=== PATIENT | female | born 1970 | race Caucasian/White ===

== ENCOUNTER → 2017-10-16 17:29 | Outpatient (REF) | payer BC, SELFPAY ==
[2017-10-22 15:19] LABS: Neisseria gonorrhoeae, NAA Negative (Negative)
== END ==
LOC: LAB 17:29
PROVIDERS: Obstetrics & Gynecology; Visit Provider Nurse Practitioner Obstetrics & Gynecology
DX: Z72.51 High risk heterosexual behavior (principal)
CPT/HCPCS: 87491; 87591

== ENCOUNTER → 2018-08-30 14:25 | Outpatient (CLI) | payer BC, SELFPAY ==
[2018-08-30 17:38] LABS: Free Thyroxine Index 1.7 ug/dL (5.93-13.13); Triiodothryronine (T3) Uptake 34 % (31-39)
[2018-09-01 12:44] LABS: Estradiol 87.5 pg/mL (.); FSH 34.6 mIU/mL (.); LH 12.2 mIU/mL (.); Triiodothyronine (T3) Free 2.3 pg/mL (2.0-4.4)
== END ==
PROVIDERS: Visit Provider Nurse Practitioner Obstetrics & Gynecology
DX: N93.9 Abnormal uterine and vaginal bleeding, unspecified (principal); N95.1 Menopausal and female climacteric states
CPT/HCPCS: 36415; 82670; 83001; 83002; 84436; 84443; 84479; 84481

== ENCOUNTER → 2018-09-03 14:32 | Outpatient (CLI) | payer BC, SELFPAY ==
--- NOTE | 2018-09-03 14:33 | US_ITS ---
US transvaginal Ordering Physician: Darrin Pope MD Patient Age: 48 years: Female HISTORY: ITS.REASON: US T/V- Irregular Periods Prolonged bleeding 6 weeks uterine fibroid cervical polyp TECHNIQUE: Transvaginal in transabdominal pelvic ultrasound/cc COMPARISON :None FINDINGS UTERUS 9.3 cm length x 5.45 cm AP x 7.7 cm wide. Generous endometrial stripe measures up to nearly 1.1 cm . Vague uterine fibroid suggested at the right lateral aspect of fundus. This measures up to 3.8 cm length x 3.2 cm AP x 2.9 cm transverse. Probable cervical polyp: There is a 5 mm x 4.7 mm hyperechoic focus at the cervical canal which would be compatible with a small cervical polyp. Nabothian cysts are seen adjacent to apparent polyp, and located along the the Posterior aspect of the cervical canal.. Largest nabothian cyst just distal follow-up is 6 mm size. Another smaller one just proximal measuring less than 3 mm at. Right ovary 2.34 cm x 1.9 cm x 1.8 cm. Scattered small follicles none measuring over 6 mm size Enlarged left ovary Left ovary 5 cm x 3 cm x 3.6 cm. Dominant cyst at the left ovary measures up to 3.9 cm x 2.8 x 3.3 cm. Satisfactory, good color Doppler blood flow to both ovaries No free fluid pelvis IMPRESSION: 1. Uterus enlarged, with right lateral fundal Fibroid measures 3.8 cm length maximally Endometrium up to nearly 1.1 cm 2. Cervical polyp. 5 Mm size . Small Nabothian cyst 3. Prominent cyst left ovary measures 3.9 cm maximally . Appears to be smooth walled simple cysts but warrants follow-up 4. No free fluid in cul-de-sac
== END ==
PROVIDERS: PCP Emergency Medicine; Visit Provider Nurse Practitioner Obstetrics & Gynecology
DX: N92.6 Irregular menstruation, unspecified (principal)
CPT/HCPCS: 76830

== ENCOUNTER → 2018-11-03 13:42 | Outpatient (CLI) | payer BC, SELFPAY ==
[2018-11-03 14:03] LABS: Basophils % 0.6 % (0.1-2.0); Eosinophils # 0.3 K/mm3 (0.0-0.4); Eosinophils % 4.3 % (0.1-12.0); Hematocrit 37.2 % (37.0-47.0); Hemoglobin 11.9 g/dL (12.2-16.2); Lymphocytes # 2.1 K/mm3 (0.7-4.5); Lymphocytes % 31.3 % (10-50); Mean Corpuscular HGB Conc 31.9 g/dL (31.8-35.4); Mean Platelet Volume 7.2 fl (7.4-10.4); Monocytes # 0.4 K/mm3 (0.1-1.0); Monocytes % 5.6 % (1.7-9.3); Neutrophils # 3.9 K/mm3 (1.8-7.8); Neutrophils % 58.3 % (37.0-80.0); Platelet Count 292 K/mm3 (142-424); Red Blood Count 3.96 M/mm3 (4.20-5.40); Red Cell Distribution Width 12.9 % (11.5-17.5); White Blood Count 6.6 K/mm3 (4.8-10.8)
[2018-11-03 14:34] LABS: HCG Qualitative, Serum Negative (Negative)
[2018-11-03 14:56] LABS: Anion Gap 11.6 mEq/L (5-15); Blood Urea Nitrogen 12 mg/dL (7-18); Calcium 8.4 mg/dL (8.5-10.1); Carbon Dioxide 28 mmol/L (21.0-32.0); Chloride 106 mmol/L (98-107); Creatinine,Serum 0.62 mg/dL (0.55-1.02); Estimated Glomerular Filt Rate 102 ml/min (>60); GFR (African American) 124 ML/MIN (>60); Glucose 81 mg/dL (74-106); Potassium 3.6 mmoL/L (3.5-5.1); Sodium 142 mmol/L (136-145)
== END ==
PROVIDERS: Visit Provider Nurse Practitioner Obstetrics & Gynecology
DX: Z01.818 Encounter for other preprocedural examination (principal); N92.0 Excessive and frequent menstruation with regular cycle
CPT/HCPCS: 36415; 80048; 84703; 85025

== ENCOUNTER 2018-11-05 06:05 | Day surgery (SDC) | payer BC, SELFPAY ==
[2018-11-04 10:02] VITALS: BMI 21.9
[2018-11-05] VITALS (11 sets, daily range): BP systolic 141–173; BP diastolic 77–96; PULSE 56–73; RESP 18; TEMP 36.1–36.5; O2SAT 95–100
--- NOTE | 2018-11-05 07:04 | HMH.ANESCL ---
[facility] Anesthesia Checklist - Patient Identification Patient Identification: Arm Band, Verbal (Name & ) - Structural Data Admitted From: Home Planned Operative Procedure/s: Hysteroscopy, D&C, novasure ablation Consent for Planned Operative Procedure(s) Verified: Yes Verified Documents: Surgical Consent, History and Physical - NPO Status Verified Time NPO: 20:00 - Additional verifications Patient : No Anesthesia Reactions: No - Airway Assessment C-Spine Mobility Assessed: Yes TMJ Mobility Assessed: Yes Dentition: Good Dentition (upper braces) - Neurological Assessment Level of Consciousness: Awake, Alert, Appropriate, Follows Commands Hx Seizures: No Numbness or tingling in extremities: No - Anesthesia Plan Anesthesia Risk discussed: Yes Anesthesia Plan: Verified ASA Class: I Anesthesia Type: General [facility] History I have reviewed the patient's past medical history: Yes Medical History: Denies:: Anxiety, Asthma, Cancer, Depression, Diabetes Mellitus Type 1, Diabetes Mellitus Type 2, Heart Murmur, Hyperlipidemia, Hypertension, Internal Pacemaker, Lung Disease, Migraine, MRSA, Seizures *Have you ever received a pneumonia vaccine?: No *Have you received a flu vaccine this season?: No Other Surgeries: Yes: , Tubal Ligation, Other. No: Pacemaker Amputation: No Fractures: No - *Social History Educational Level: Attended High School Smoking Status: Never smoker Alcohol Intake: never Alcohol Intake Frequency:: holidays/special occasions only Substance Use Type: denies use *Occupational Status:: employed Housing: house *Travel in the last 8 weeks: None - Psychiatric History Expresses thoughts of harming self/others: None Suicide Plan Description: No Plan Pschychiatric History:: Denies:: Anxiety, Depression Family Hx:: Cancer, Diabetes, Coronary Artery Disease
--- NOTE | 2018-11-05 07:47 | HMH.OPNOTE ---
Date of procedure: 11/05/18 Pre-op Diagnosis:: Menorrhagia Post-op Diagnosis:: Menorrhagia Procedure performed:: Hysteroscopy, dilation and curettage, NovaSure ablation Surgeon:: Darrin Pope MD TENTER FRAME BACK TENDER:: Severino Packer Anesthesia: LMA Estimated blood loss (mL): 50 Clinical Note:: She is a 48-year-old lady who complains of very heavy periods. She has tried other forms of control to try and control her periods but despite this she continued to have menorrhagia. After having discussed the risks and benefits we offered her hysteroscopy, D&C and NovaSure ablation. Operative findings:: She had a normal-appearing endometrial cavity that was somewhat irregular. It was also hypervascular at the fundus. The rest of the endometrium appeared normal. Operative note:: She was taken to the operating room where LMA anesthesia was found be adequate. She was prepped and draped in the normal sterile fashion in the lithotomy position. A weighted speculum was placed in the vagina and the anterior lip of the cervix was grasped with a tenaculum. The cervix was then dilated to approximately 6 mm. I then inserted a hysteroscope into the uterine cavity and the findings were as previously dictated. I then performed a gentle curettage with a medium curette. I then sounded the uterus and determine the length of the uterus. The length the uterus was found to be 6 cm and the width was 4 cm. This was placed into the NovaSure device. I then inserted the NovaSure device and determine the width of the endometrial cavity. I then ran the device through its program. I further inspected the endometrial cavity and was found to be completely charred. I then injected 30 cc of 0.5% ropivacaine at the 3:00, 5:00, 7:00, and 9:00 positions of the cervix. She tolerated procedure well and was taken to the recovery room in excellent condition. All sponge and instrument counts were correct. The estimated blood loss was less than 50 cc. Condition: stable Disposition: PACU Specimens:: Endometrial curettings Complications:: None
--- NOTE | 2018-11-05 07:57 | P.PN_ITS ---
[facility] Anesthesia Record Part I Intake, IV Amount: 450 Estimated blood loss (mL): 50 Urine output (mL): 100 Blood Products used (#): none Blood Pressure: 151/90 SaO2: 95 Pulse Rate: 61 Respiratory Rate: 18 Temperature: 97.0 F Patient is:: Drowsy, Stable Stable to PACU at:: 07:54
--- NOTE | 2018-11-05 07:58 | P.PN_ITS ---
[facility] Anesthesia Record Part II Discharge Time: 08:24 Destination: Surgical Day Care (OP Surgery) PACU nurse assessment reviewed?: Yes Patient Condition:: Good Anesthesia Complications:: None Swallowing reflex intact?: Yes Cyanosis?: No
--- NOTE | 2018-11-05 09:59 | SUR.PHASEII ---
0830: No family waiting in OR waiting room. 0841: #20G IV removed from left hand, pt tolerated well. 0845: pt to bathroom, voided with no pain or distress 0848: pt has Peps[employer], tolerating well 0850: calling family, thought was , was pt's father, he was at home, had left after pt went to surgery, explained that we needed him to come, sign paperwork and pt is ready to be d/c 0915: pt's father at the bedside, d/c instructions given to pt and her father, along with Rx and instructions 0928: pt d/c home with her father
== END 2018-11-05 09:28 | disposition home or self-care (01) ==
LOC: OR 06:12
PROVIDERS: PCP Emergency Medicine; Visit Provider Nurse Practitioner Obstetrics & Gynecology
PROC: 0U5B8ZZ Destruction of Endometrium, Via Natural or Artificial Opening Endoscopic (ICD-10-PCS; CPT 58563; principal; 2018-11-05 07:30)
DX: N92.0 Excessive and frequent menstruation with regular cycle (principal)
CPT/HCPCS: 58563; 96374; J2405

== ENCOUNTER → 2018-12-07 15:03 | Outpatient (POV) | payer BC, SELFPAY | PROVIDERS: Visit Provider Dermatology | DX: Z00.00 Encounter for general adult medical examination without abnormal findings (principal) ==

== ENCOUNTER → 2020-04-26 15:03 | Outpatient (CLI) | payer BC, SELFPAY ==
[2020-04-26 15:04] LABS: Microscopic, Urine URINE MICROSCOPIC (MICROSCOPIC)
[2020-04-26 15:37] LABS: Appearance,Urine CLEAR (Clear); Bilirubin,Urine Negative (Negative); Blood, Urine Negative (Negative); Color,Urine YELLOW (Yellow); Glucose,Urine (UA) Negative (Negative); Ketones,Urine Negative (Negative); Leukocyte Esterase,Urine Negative (Negative); Nitrate,Urine Negative (Negative); Protein,Urine Negative (Negative); Specific Gravity, Urine >= 1.030 (1.005-1.030); Urobilinogen,Urine 0.2 EU/dl (0.2)
[2020-04-26 15:48] LABS: Calcium Oxalate Crystals,Urine 1+ /lpf; Squamous Epithelial Cell,Urine Occasional #/hpf (0-5)
[2020-04-26 15:49] LABS: Uric Acid Crystals,Urine 1+ /lpf
== END ==
PROVIDERS: Visit Provider Nurse Practitioner Obstetrics & Gynecology
DX: Z01.419 Encounter for gynecological examination (general) (routine) without abnormal findings (principal)
CPT/HCPCS: 81001

== ENCOUNTER → 2020-05-03 10:12 | Outpatient (CLI) | payer BC, SELFPAY ==
--- NOTE | 2020-05-03 10:15 | MM_ITS ---
PROCEDURE: MM DIG SCREENING MAMM BI W/CAD Digital Breast Tomosynthesis Included CLINICAL INDICATION: SCREENING There is a history of breast cancer patient's paternal grandmother. There has been previous bilateral breast reduction surgery. COMPARISON: MG DMSB DIG MAMM-SCREEN AVIVA from 04/05/2015 MG DMSB DIG MAMM-SCREEN AVIVA W/CAD from 06/19/2016 MG DMDB DIG MAMM-DX AVIVA W/CAD from 04/10/2017 TECHNIQUE: Standard CC and MLO images and 3D Tomosynthesis was obtained. R2 CAD reviewed. FINDINGS: There is a markedly and diffusely dense parenchymal pattern. Ady images are most helpful with this type of dense breast parenchyma and no definite suspicious or new lesion is seen in either breast. There are scattered microcalcifications in each breast. IMPRESSION: Markedly dense and heterogenic parenchymal pattern with no definite suspicious lesions seen. Strongly recommend monthly breast self-examination BI-RAD Category: FOLLOW-UP: 1YR 1 Year Follow-up (A letter has been sent to the patient regarding results of the study.) Dictated by: Dr. Bernard Sequeira MD 05/04/2020 16:54 Dr. Bernard Sequeira MD in OV 05/04/2020 16:54
== END ==
PROVIDERS: PCP Physician Assistant; Visit Provider Nurse Practitioner Obstetrics & Gynecology
DX: Z12.31 Encounter for screening mammogram for malignant neoplasm of breast (principal)
CPT/HCPCS: 77063; 77067

== ENCOUNTER 2020-08-25 13:03 | Emergency (ER) | payer BC, SELFPAY ==
[2020-08-25 13:16] VITALS: BP 134/72; PULSE 94; RESP 14; TEMP 36.8; O2SAT 98; BMI 23.6
--- NOTE | 2020-08-25 13:23 | HMH.EDUTC ---
[facility] [place] Disposition Clinical Impression: Allergic rhinitis Qualifiers: Allergic rhinitis trigger: other Allergic rhinitis seasonality: seasonal Qualified Code(s): J30.89 - Other allergic rhinitis Disposition: Home, Self-Care Condition on Discharge: Good Instructions: DI for Allergic Rhinitis Additional Instructions: follow up with pcp if no improvement return Referrals: Janeen Horan PA [Primary Care Provider] - Time of Disposition: 13:26 Medical Decision Making - Zhao Inquiry Pt receiving controlled substance: No Vital Signs: 08/25/20 13:16 Temperature 98.3 F Temperature Source Oral Pulse Rate [Right Brachial] 94 H Respiratory Rate 14 Blood Pressure [Right Arm] 134/72 Blood Pressure Mean [Right Arm] 92 Blood Pressure Source [Right Arm] Automatic Cuff Blood Pressure Position [Right Arm] Sitting 02 Sat by Pulse Oximetry 98 Oxygen Delivery Method Room Air [facility] HPI - General Chief complaint: Urgent Treatment Center Stated complaint: strep test Time Seen by Provider: 08/25/20 13:23 Mode of Arrival: Ambulatory Source of Information: Patient Limitations: No Limitations Description of Symptoms (Recalled from Triage Doc. by RN): check for strep - bad taste in mouth x 1 week HEENT Symptoms (Recalled from RN notes): Yes Resp Symptoms (Recalled from RN notes): No Skin Symptoms (Recalled from RN notes): No MS Symptoms (Recalled from RN notes): No Functional Status (Recalled from RN notes): n/a - History of Present Illness Provider Complaint: 50 yr old female presnets for strep test. pt denies sick contacts or sore throat states only a bad taste in mouth - Related Data Previous Rx's Medication Instructions Recorded phentermine 37.5 mg tablet 37.5 mg PO DAILY #30 tab 08/20/20 Allergies Allergy/AdvReac Type Severity Reaction Status Date / Time No Known Allergies Allergy Verified 08/25/20 13:20 - Worker's Comp Is this a Worker's Comp case?: No [facility] History - Hepatitis A Screen Drug use history?: No High risk sexual behaviors?: No History of sexually transmitted infection?: No Currently employed?: No Childcare worker?: No Do you have indoor plumbing?: No Do you have electricity?: Yes Attestation statement:: This patient has been screened for Hepatitis A risk factors. I have reviewed the patient's past medical history: Yes Medical History: Reports:: Internal Pacemaker Denies:: Anxiety, Asthma, Cancer, Depression, Diabetes Mellitus Type 1, Diabetes Mellitus Type 2, Heart Murmur, Hyperlipidemia, Hypertension, Lung Disease, Migraine, MRSA, Seizures Other Medical History: Denies: Blood Transfusion Reaction Other Surgeries: Yes: , Pacemaker, Tubal Ligation, Other Amputation: No Fractures: No Comment: Breast Reduction 12/2016 - Social History Smoking Status: Never smoker Alcohol Intake: never Alcohol Intake Frequency:: holidays/special occasions only Substance Use Type: denies use Occupational Status: employed Housing: house Household Members: family - Psychiatric History Pschychiatric History:: Denies:: Anxiety, Depression Family Hx:: Cancer, Diabetes, Coronary Artery Disease ROS Obtained: Yes Systems reviewed as appropriate & no additional complaints - Constitutional Constitutional: Reports system reviewed and no additional complaints, except as docu, Denies chills, Denies fever(s) - Eyes Eyes: Reports system reviewed and no additional complaints, except as docu, Denies blurry vision - ENT Ears, Nose, Mouth, and Throat: Reports system reviewed and no additional complaints, except as docu, Reports as per HPI, Denies sore throat - Cardiovascular Cardiovascular: Reports system reviewed and no additional complaints, except as docu, Denies chest pain at rest - Respiratory Respiratory: Reports system reviewed and no additional complaints, except as docu, Denies chest congestion - Gastrointestinal Gastrointestingal: Reports: system reviewed and no addition
[2020-08-25 13:30] VITALS: BP 134/72; PULSE 94; RESP 14; TEMP 36.8; O2SAT 98
[2020-08-25 19:34] LABS: UTC Strep Screen (Rapid) Negative (Negative)
== END 2020-08-25 13:32 | disposition home or self-care (01) ==
PROVIDERS: Emergency Provider Nurse Practitioner Family; PCP Physician Assistant
DX: J30.89 Other allergic rhinitis (principal)
CPT/HCPCS: 87880; 99202; G0463

== ENCOUNTER 2021-01-26 15:00 | Emergency (ER) | payer BC, SELFPAY ==
[2021-01-26 15:09] VITALS: BP 141/73; PULSE 94; RESP 18; TEMP 37.1; O2SAT 97; BMI 24.3
[2021-01-26 15:16] VITALS: BP 141/73; PULSE 94; RESP 17; TEMP 37.1
--- NOTE | 2021-01-26 16:00 | HMH.EDUTC ---
[facility] [place] Clinical Impression: Viral syndrome, Exposure to COVID-19 virus Pharyngitis Qualifiers: Pharyngitis/tonsillitis etiology: unspecified etiology Qualified Code(s): J02.9 - Acute pharyngitis, unspecified Disposition: Home, Self-Care Condition on Discharge: Good Instructions: DI for Viral Syndrome, DI for COVID-19 (Suspected or Confirmed ), Preventing the Spread of Coronavirus Discharge Instructions Additional Instructions: Drink plenty of fluids. Take tylenol for pain or fever. Return if you begin to have difficulty breathing. Follow up with your regular doctor. GO TO THE ER FOR ANY WORSENING SYMPTOMS Quarantine until you know the results of your covid-19 test. If it is positive, the health department should call you and give you further instructions about your length of Quarantine and other things. Notify your school or workplace of your results and follow their instructions regarding return to work/school. Prescriptions: Benzonatate [Tessalon Perle 100mg Cap] 100 mg PO TIDP PRN #30 cap PRN Reason: Cough Transmission Status: Received by [id number] Ondansetron [Zofran 4mg ODT] 4 mg PO DAILYP PRN #12 tab PRN Reason: Nausea Transmission Status: Received by [id number] Referrals: Param Donis MD [Primary Care Provider] - Forms: Work/School Release Time of Disposition: 16:09 Medical Decision Making - Medical Records Medical records reviewed: No: I reviewed the patient's medical records. - Zhao Inquiry Pt receiving controlled substance: No Vital Signs: 01/26/21 15:09 01/26/21 15:16 Temperature 98.8 F 98.8 F Temperature Source Oral Pulse Rate 94 H Pulse Rate [Left] 94 H Respiratory Rate 18 17 Blood Pressure 141/73 H Blood Pressure [Right Arm] 141/73 H Blood Pressure Mean [Right Arm] 95 02 Sat by Pulse Oximetry 97 Orders (Tests/Meds): ORDERS Category Date Time Status Covid-19 Nasal PCR ([facility]) Routine Lab 01/26/21 13:13 [place] [facility] [place] - General Stated complaint: covid test/symptoms Time Seen by Provider: 01/26/21 16:01 Mode of Arrival: Ambulatory Source of Information: Patient Limitations: No Limitations Description of Symptoms (Recalled from Triage Doc. by RN): PT C/O TAN, SORE THROAT AND RUNNY NOSE. PT WAS EXPOSE 01/19. HEENT Symptoms (Recalled from RN notes): Yes (TAN, SORE THROAT AND RUNNY NOSE) Resp Symptoms (Recalled from RN notes): No Skin Symptoms (Recalled from RN notes): No MS Symptoms (Recalled from RN notes): No Functional Status (Recalled from RN notes): NA - History of Present Illness Provider Complaint: She states that she has felt bad for the past 3 days. She has had a dry cough, sinus congestion and nausea. - Related Data Home Medications Medication Instructions Recorded Confirmed metronidazole 500 mg tablet 500 mg PO tab 10/23/20 10/23/20 Previous Rx's Medication Instructions Recorded fluconazole 150 mg tablet 150 mg PO .QOD 6 Days #3 tab 10/16/20 phentermine 37.5 mg tablet 37.5 mg PO DAILY #30 tab 11/20/20 Benzonatate [Tessalon Perle 100mg 100 mg PO TIDP PRN #30 cap 01/26/21 Cap] Ondansetron [Zofran 4mg ODT] 4 mg PO DAILYP PRN #12 tab 01/26/21 Allergies Allergy/AdvReac Type Severity Reaction Status Date / Time No Known Allergies Allergy Verified 10/23/20 13:47 - Worker's Comp Is this a Worker's Comp case?: No [facility] History - Hepatitis A Screen Drug use history?: No High risk sexual behaviors?: No History of sexually transmitted infection?: No Currently employed?: No Childcare worker?: No Do you have indoor plumbing?: Yes Do you have electricity?: Yes Attestation statement:: This patient has been screened for Hepatitis A risk factors. I have reviewed the patient's past medical history: Yes Medical History: Reports:: Internal Pacemaker Denies:: Anxiety, Asthma, Cancer, Depression, Diabetes Mellitus Type 1, Diabetes Mellitus Type 2, Heart Murmur, Hyperl
--- NOTE | 2021-01-27 14:37 | PC.NURSE ---
relayed positive covid result
== END 2021-01-26 16:37 | disposition home or self-care (01) ==
PROVIDERS: Emergency Provider Nurse Practitioner Family; PCP Emergency Medicine
DX: U07.1 COVID-19 (principal); B34.9 Viral infection, unspecified; Z95.0 Presence of cardiac pacemaker
CPT/HCPCS: 99202; C9803; G0463; U0003; U0005

== ENCOUNTER → 2021-07-04 07:53 | Outpatient (CLI) | payer BC, SELFPAY ==
--- NOTE | 2021-07-04 07:53 | MM_ITS ---
PROCEDURE INFORMATION: Exam: MG Bilateral Screening 3D Mammography Exam date and time: 07/04/2021 7:53 AM Age: 51 years old Clinical indication: Screening mammogram. TECHNIQUE: Imaging protocol: Bilateral Screening tomosynthesis and 2D mammography including computer-aided detection (CAD) when performed. COMPARISON: 1. MG MM DIG SCREENING MAMM BI W/CAD 05/03/2020 10:16 AM 2. MG DMDB DIG MAMM-DX AVIVA W/CAD 04/10/2017 1:09 PM 3. MG DMSB DIG MAMM-SCREEN AVIVA W/CAD 06/19/2016 9:58 AM 4. MG DMSB DIG MAMM-SCREEN AVIVA 04/05/2015 4:15 PM FINDINGS: MAMMOGRAPHY: Breast composition: The breast tissue is extremely dense, limiting the sensitivity of mammography. Mass: None. Architectural distortion: No new or suspicious architectural distortion. Calcifications: No new or suspicious calcifications are present Asymmetric density: No new or suspicious asymmetric density is present Skin thickening: None. Axillary adenopathy: None. IMPRESSION: No mammographic evidence of malignancy. Recommend annual screening mammography unless otherwise clinically indicated. ASSESSMENT: BI-RADS category 1: Negative
== END ==
PROVIDERS: PCP Emergency Medicine; Visit Provider Nurse Practitioner Obstetrics & Gynecology
DX: Z12.31 Encounter for screening mammogram for malignant neoplasm of breast (principal)
CPT/HCPCS: 77063; 77067

== ENCOUNTER 2021-08-03 13:57 | Emergency (ER) | payer BC, SELFPAY ==
[2021-08-03 14:20] VITALS: BP 130/76; PULSE 74; RESP 19; TEMP 36.8; O2SAT 98; BMI 25.7
[2021-08-03 14:41] LABS: UTC Influenza A Antigen Negative (Negative)
[2021-08-03 14:42] LABS: UTC Influenza B Antigen Negative (Negative)
--- NOTE | 2021-08-03 14:48 | HMH.EDUTC ---
[facility] [place] Clinical Impression: Viral syndrome Disposition: Home, Self-Care Condition on Discharge: Good Instructions: Nausea and Vomiting-Adult, Ondansetron, DI for COVID-19 (Suspected or Confirmed ) Additional Instructions: Drink extra fluids with and between meals. If you have difficulty drinking, try very small amounts of water or suck on ice chips. ? Avoid fruit juices, as these do not replace minerals and can actually increase diarrhea. ? Children and adults can use sports drinks to replenish electrolytes. Younger children and infants should use products formulated for children, like oral rehydration solutions. ? Eat food in small amounts and let your stomach recover. ? Get lots of rest. You may feel tired or weak. ? No greasy or fried foods for the next 24-48 hours BRAT diet Bananas Rice Apples and [place] ? Make sure to drink plenty of liquids ? Return if needed ? Straight to ER if any life threatening symptoms ? Zofran as prescribed ? Follow up with family doctor in the next 48-72 hours if no improvement or any worsening of symptoms Prescriptions: Ondansetron [Zofran 4mg ODT] 4 mg PO TIDP PRN #9 tab PRN Reason: Vomiting Transmission Status: [facility] to [facility] Referrals: Janeen Horan PA [Primary Care Provider] - As needed Time of Disposition: 15:01 Medical Decision Making - Zhao Inquiry Pt receiving controlled substance: No Zhao was queried for this patient: No Vital Signs: 08/03/21 14:20 08/03/21 15:06 Temperature 98.3 F 98.3 F Temperature Source Oral Pulse Rate 74 Pulse Rate [Right Brachial] 74 Respiratory Rate 19 19 Blood Pressure 130/76 Blood Pressure [Right Arm] 130/76 Blood Pressure Mean [Right Arm] 94 Blood Pressure Source [Right Arm] Automatic Cuff Blood Pressure Position [Right Arm] Sitting 02 Sat by Pulse Oximetry 98 Oxygen Delivery Method Room Air - Lab Data Lab results reviewed: Yes: I reviewed the patient's lab results. Lab Results 08/03/21 14:29: Influenza Type A Ag Negative, Influenza Type B Ag Negative Orders (Tests/Meds): ED MEDICATIONS Discontinued Medications Generic Name Dose Route Start Last Admin Trade Name Freq PRN Reason Stop Dose Admin Ondansetron HCl 4 mg 08/03/21 14:56 08/03/21 15:04 Ondansetron 4mg Odt SL 08/03/21 14:57 4 mg ONCE ONE Administration ORDERS Category Date Time Status Covid-19 Nasal PCR ([facility]) Routine Lab 08/03/21 14:29 Received [facility] [place] - General Stated complaint: covid test, vomiting Time Seen by Provider: 08/03/21 14:48 Mode of Arrival: Ambulatory Source of Information: Patient Limitations: No Limitations Description of Symptoms (Recalled from Triage Doc. by RN): PATIENT C/O NAUSEA, VOMITING SINCE LAST NIGHT HEENT Symptoms (Recalled from RN notes): No Resp Symptoms (Recalled from RN notes): No Skin Symptoms (Recalled from RN notes): No MS Symptoms (Recalled from RN notes): No Functional Status (Recalled from RN notes): WNL - History of Present Illness Provider Complaint: Patient states that she has been having N/V since last night States that she has been around someone recenlty that had the flu and not sure if she has been around someone with the stomach virus or not but today she was still having nausea so she came in to get checked and tested for COVID - Related Data Home Medications Medication Instructions Recorded Confirmed metronidazole 500 mg tablet 500 mg PO tab 10/23/20 10/23/20 Previous Rx's Medication Instructions Recorded fluconazole 150 mg tablet 150 mg PO .QOD 6 Days #3 tab 10/16/20 Benzonatate [Tessalon Perle 100mg 100 mg PO TIDP PRN #30 cap 01/26/21 Cap] Ondansetron [Zofran 4mg ODT] 4 mg PO DAILYP PRN #12 tab 01/26/21 phentermine 37.5 mg tablet 37.5 mg PO DAILY #30 tab 07/10/21 Ondansetron [Zofran 4mg ODT] 4 mg PO TIDP PRN #9 tab 08/03/21 Allergies Allergy/AdvReac Type Severity Reaction Status Date / Time No Known A
[2021-08-03 15:06] VITALS: BP 130/76; PULSE 74; RESP 19; TEMP 36.8; O2SAT 98
== END 2021-08-03 15:18 | disposition home or self-care (01) ==
PROVIDERS: Emergency Provider Nurse Practitioner; PCP Physician Assistant
DX: B34.9 Viral infection, unspecified (principal)
CPT/HCPCS: 87804; 99212; C9803; G0463; U0003; U0005

== ENCOUNTER 2022-01-13 15:16 | Emergency (ER) | payer BC, SELFPAY ==
[2022-01-13 18:10] VITALS: BP 140/76; PULSE 67; RESP 16; TEMP 36.7; O2SAT 99; BMI 25.8
--- NOTE | 2022-01-13 18:21 | EXP.UTC ---
Discharge Plan Disposition Patient Disposition: Home, Self-Care Condition: Good Prescriptions Prescriptions: New methylprednisolone [Medrol (José Miguel)] 4 mg tablets,dose pack 4 mg PO DAILY Qty: 21 0RF cefdinir 300 mg capsule 300 mg PO BID Qty: 20 0RF Activity Restrictions/Add. Instructions Additional Instructions/Restrictions: *Monitor Temp, Over the counter Motrin or Tylenol as directed/as needed Tylenol every 4 hours and Motrin every 6 hours (as long as your family doctor has told you that you can take it) for fever or pain. and straight to ER if unable to lower temp less than 101.0 after medication given *Warm salt water gargles may help to soothe the throat *Throat Lozenges? *Warm fluids like tea with honey may help to soothe the throat? *Sleep elevated *Humidifier/Vaporizer *Flonase 2 sprays in each nostril daily but be aware that it may take 2-3 days before you notice improvement *Bromfed may cause drowsiness. Know how it effects you (your child) before driving, caring for small child, or sending your child to school. Not other antihistamines/allergy medications while taking bromfed Your throat swab was sent for culture. Those results are typically sent to your primary care. Be sure to follow up in 2-3 days with your family doctor/primary care physician if no improvement so they can review those result and treat if necessary. If you don?t have a primary care doctor, I recommend you get one but in the mean time, you will have to return to a walk in clinic Follow up IMMEDIATELY for new or worsening symptoms or no Noticeable improvement over the next 48-72 hours. 911 for difficulty breathing or swallowing Clinical Impressions Clinical Impression: Strep throat Stand Alone Forms Stand Alone Forms: Work/School Release Instructions Patient Instructions: Sore Throat Discharge ED Provider: [place] [facility] General Stated complaint: sore throat Mode of Arrival: Ambulatory Source of Information: Patient Limitations: No Limitations Time Seen by Provider: 01/13/22 18:10 Description of Symptoms (Recalled from Triage Doc. by RN): PATIENT C/O SORE THROAT AND EAR PAIN X 3 DAYS HEENT Symptoms (Recalled from RN notes): Yes Resp Symptoms (Recalled from RN notes): No Skin Symptoms (Recalled from RN notes): No MS Symptoms (Recalled from RN notes): No Functional Status (Recalled from RN notes): WNL History of Present Illness Provider Complaint: Patient states that she has been having sore throat and bilateral ear pain for the last 3 days States that she feels like she has some drainage back there causing her throat to feel raw and irritated Related Data Previous Rx's Medication Instructions Recorded cefdinir 300 mg capsule 300 mg PO BID #20 caps 01/13/22 methylprednisolone 4 mg tablets in 4 mg PO DAILY #21 tabs 01/13/22 a dose pack (Medrol (José Miguel)) Allergies Allergy/AdvReac Type Severity Reaction Status Date / Time No Known Allergies Allergy Verified 11/08/21 14:59 Worker's Comp Is this a Worker's Comp case?: No PFSH PFSH Social History Smoking Status: Never smoker alcohol intake: never substance use type: denies use current occupational status: other Travel in the last 8 weeks: None household members: family housing: house ROS Obtained: Yes All systems reviewed & no additional complaints except as documented and Yes Systems reviewed as appropriate & no additional complaints except as documented Constitutional Constitutional: Reports system reviewed and no additional complaints, except as documented and Reports as per HPI ENT Ears, Nose, Mouth, and Throat: Reports system reviewed and no additional complaints, except as documented, Reports otalgia and Reports sore throat Cardiovascular Cardiovascular: Reports system reviewed and no additional complaints, except as documented and Reports as per HPI Respiratory Respiratory: Reports system reviewed and no
[2022-01-13 18:31] LABS: UTC Strep Screen (Rapid) Positive (Negative)
[2022-01-13 18:35] VITALS: BP 140/76; PULSE 67; RESP 16; TEMP 36.7; O2SAT 99
== END 2022-01-13 18:37 | disposition home or self-care (01) ==
PROVIDERS: Emergency Provider Nurse Practitioner; PCP Emergency Medicine
DX: J02.0 Streptococcal pharyngitis (principal)
CPT/HCPCS: 87880; 99212; G0463

== ENCOUNTER → 2022-07-01 13:20 | Outpatient (CLI) | payer BC, SELFPAY ==
--- NOTE | 2022-07-01 13:30 | ECG_ITS ---
APPROVED REPORT Exam: Resting ECG HR:74 bpm ECG Measurements Heart Rate 74 AXES WY 163 P 78 QRSd 117 QRS 61 QT 399 T 69 QTc 427 Conclusion SINUS RHYTHM INCOMPLETE RIGHT BUNDLE BRANCH BLOCK [90+ ms QRS DURATION, TERMINAL R IN V1/V2, 40+ ms S IN I/aVL/V4/V5/V6] BORDERLINE ECG UNCONFIRMED REPORT Electronically signed by : Severino Cornell MD 07/01/2022 21:15:20
--- NOTE | 2022-07-01 13:42 | XR_ITS ---
FINAL REPORT CLINICAL HISTORY: COUGH FINDINGS: PA and lateral views of the chest are obtained. There is no prior exam for comparison. The cardiac and mediastinal silhouettes are within normal limits. The lungs are clear. There is no pleural effusion, pneumothorax, or acute osseous abnormality. IMPRESSION: No radiographic evidence of acute cardiac or pulmonary disease. Reviewed, Interpreted and Dictated by Melinda Longroia MD Transcribed by Aleksandra Stovall Authenticated and [facility]
[2022-07-01 14:23] LABS: Basophils # 0.1 K/mm3 (0-0.2); Basophils % 1.1 % (0.1-2.0); Eosinophils # 0.4 K/mm3 (0.0-0.4); Eosinophils % 4.7 % (0.1-12.0); Hematocrit 40.6 % (37.0-47.0); Hemoglobin 13.5 g/dL (12.2-16.2); Lymphocytes # 2.5 K/mm3 (0.7-4.5); Lymphocytes % 32.1 % (10-50); Mean Corpuscular HGB Conc 33.3 g/dL (31.8-35.4); Mean Corpuscular Hemoglobin 31.6 pg (27.0-31.2); Mean Platelet Volume 9.4 fl (7.4-10.4); Monocytes # 0.4 K/mm3 (0.1-1.0); Monocytes % 4.8 % (1.7-9.3); Neutrophils # 4.4 K/mm3 (1.8-7.8); Neutrophils % 57.4 % (37.0-80.0); Platelet Count 324 K/mm3 (142-424); Red Blood Count 4.28 M/mm3 (4.20-5.40); Red Cell Distribution Width 13.6 % (11.5-17.5); White Blood Count 7.7 K/mm3 (4.8-10.8)
[2022-07-01 15:22] LABS: Chloride 110 mmol/L (98-107); Potassium 4.1 mmoL/L (3.5-5.1); Sodium 142 mmol/L (136-145)
[2022-07-01 15:25] LABS: Anion Gap 12.1 mEq/L (5-15); Blood Urea Nitrogen 17 mg/dl (7-17); Calcium 9.3 mg/dl (8.4-10.2); Carbon Dioxide 24 mmol/L (22.0-30.0); Estimated Glomerular Filt Rate 88 ml/min (>60); GFR (African American) 106 ML/MIN (>60); Glucose 77 mg/dl (74-100)
== END ==
PROVIDERS: PCP Physician Assistant; Visit Provider Student in an Organized Health Care Education/Training Program
DX: Z01.818 Encounter for other preprocedural examination (principal); K62.89 Other specified diseases of anus and rectum
CPT/HCPCS: 36415; 71046; 80048; 85025; 93005

== ENCOUNTER → 2022-09-09 15:39 | Outpatient (CLI) | payer BC, SELFPAY ==
--- NOTE | 2022-09-09 15:40 | MM_ITS ---
PROCEDURE INFORMATION: Exam: MG Bilateral Screening 3D Mammography Exam date and time: 09/09/2022 3:56 PM Age: 52 years old Clinical indication: Screening examination TECHNIQUE: Imaging protocol: Bilateral Screening tomosynthesis and 2D mammography including computer-aided detection (CAD) when performed. COMPARISON: 1. MG MM DIG SCREENING MAMM BI W/CAD 07/04/2021 7:56 AM 2. MG MM DIG SCREENING MAMM BI W/CAD 05/03/2020 10:16 AM FINDINGS: MAMMOGRAPHY: Breast composition: The breasts are heterogeneously dense, which may obscure small masses. Mass: None. Architectural distortion: None. Calcifications: No suspicious calcifications. Asymmetric density: None. Skin thickening: None. Axillary adenopathy: None. IMPRESSION: No mammographic evidence of malignancy. Annual screening is recommended unless otherwise clinically indicated. ASSESSMENT: BI-RADS Category 1: Negative
== END ==
PROVIDERS: PCP Physician Assistant; Visit Provider Nurse Practitioner Obstetrics & Gynecology
DX: Z12.31 Encounter for screening mammogram for malignant neoplasm of breast (principal)
CPT/HCPCS: 77063; 77067

== ENCOUNTER 2023-05-20 08:44 | Outpatient (CLI) | payer BC, SELFPAY ==
[2023-05-20 19:14] LABS: Alanine Aminotransferase 31 U/L (12-78); Albumin Level 4.3 g/dl (3.5-5.0); Albumin/Globulin Ratio 1.4 (1.1-1.8); Alkaline Phosphatase 69 U/L (38-126); Anion Gap 8.2 mEq/L (5-15); Aspartate Amino Transferase 38 U/L (14-36); Bilirubin,Total 0.4 mg/dl (0.2-1.3); Blood Urea Nitrogen 15 mg/dl (7-17); Calcium 8.4 mg/dl (8.4-10.2); Carbon Dioxide 30 mmol/L (22.0-30.0); Chloride 105 mmol/L (98-107); Cholesterol 237 mg/dl (140-200); Estimated Glomerular Filt Rate 105 ml/min (>60); GFR (African American) 127 ML/MIN (>60); Glucose 85 mg/dl (74-100); HDL Cholesterol 59 mg/dl (40-60); Potassium 4.2 mmoL/L (3.5-5.1); Sodium 139 mmol/L (136-145); Total Protein,Serum 7.3 g/dl (6.3-8.2); Triglycerides 51 mg/dl (30-150); VLDL Cholesterol 10 mg/dL (0-40)
[2023-05-20 19:31] LABS: Direct LDL Cholesterol 142.04 mg/dL (100-129)
[2023-05-20 19:45] LABS: Thyroid Stimulating Hormone 2.75 uIU/mL (0.465-4.68)
== END 2023-05-20 23:59 ==
LOC: LAB.DROPOF 05-21 08:45
PROVIDERS: PCP Nurse Practitioner Family; Visit Provider Nurse Practitioner Family
DX: I10 Essential (primary) hypertension (principal); E66.9 Obesity, unspecified; Z79.899 Other long term (current) drug therapy
CPT/HCPCS: 80053; 80061; 84443

== ENCOUNTER 2023-07-27 18:05 | Outpatient (CLI) | payer BC, SELFPAY ==
[2023-07-27 17:48] LABS: Microscopic, Urine URINE MICROSCOPIC (MICROSCOPIC)
[2023-07-27 18:49] LABS: Appearance,Urine CLEAR (Clear); Bilirubin,Urine Negative (Negative); Blood, Urine Negative (Negative); Color,Urine YELLOW (Yellow); Glucose,Urine (UA) Negative (Negative); Ketones,Urine Negative (Negative); Leukocyte Esterase,Urine Negative (Negative); Nitrate,Urine Negative (Negative); PH,Urine 5.5 (5.0-8.5); Protein,Urine Negative (Negative); Specific Gravity, Urine 1.025 (1.005-1.030); Urobilinogen,Urine 0.2 EU/dl (0.2)
[2023-07-27 19:26] LABS: Bacteria,Urine Trace /lpf; Squamous Epithelial Cell,Urine Occasional #/hpf (0-5)
[2023-07-29 22:16] LABS: Neisseria gonorrhoeae, NAA Negative (Negative)
== END 2023-07-27 23:59 ==
LOC: LAB.DROPOF 18:05
PROVIDERS: PCP Student in an Organized Health Care Education/Training Program; Visit Provider Student in an Organized Health Care Education/Training Program
DX: N76.0 Acute vaginitis (principal); B95.2 Enterococcus as the cause of diseases classified elsewhere; B96.29 Other Escherichia coli [E. coli] as the cause of diseases classified elsewhere
CPT/HCPCS: 81001; 87086; 87491; 87591

== ENCOUNTER 2023-09-17 07:53 | Outpatient (CLI) | payer BC, SELFPAY ==
--- NOTE | 2023-09-17 07:53 | MM_ITS ---
PROCEDURE INFORMATION: Exam: MG Bilateral Screening 3D Mammography Exam date and time: 09/17/2023 7:47 AM Age: 53 years old Clinical indication: Screening. Her sister had breast cancer at age 70 and her paternal grandmother had breast cancer. TECHNIQUE: Imaging protocol: Bilateral Screening tomosynthesis and 2D mammography including computer-aided detection (CAD) when performed. COMPARISON: 1. MG MM DIG SCREENING MAMM BI W/CAD 09/09/2022 3:56 PM 2. MG MM DIG SCREENING MAMM BI W/CAD 07/04/2021 7:56 AM 3. MG MM DIG SCREENING MAMM BI W/CAD 05/03/2020 10:16 AM 4. MG DMDB DIG MAMM-DX AVIVA W/CAD 04/10/2017 1:09 PM FINDINGS: MAMMOGRAPHY: Breast composition: The breasts are heterogeneously dense, which may obscure small masses. Mass: None. Architectural distortion: Stable diffuse bilateral architectural distortion with history of reduction mammoplasty. Calcifications: No suspicious calcifications. Asymmetric density: None. Skin thickening: None. Axillary adenopathy: None. IMPRESSION: No mammographic evidence of malignancy. Annual screening is recommended unless otherwise clinically indicated. ASSESSMENT: BI-RADS Category 2: Benign.
== END 2023-09-17 23:59 | disposition home or self-care (01) ==
LOC: RAD 07:53
PROVIDERS: PCP Student in an Organized Health Care Education/Training Program; Visit Provider Nurse Practitioner Obstetrics & Gynecology
DX: Z12.31 Encounter for screening mammogram for malignant neoplasm of breast (principal)
CPT/HCPCS: 77063; 77067

== ENCOUNTER 2024-09-29 08:17 | Outpatient (CLI) | payer BC, SELFPAY ==
--- OUTSIDE RECORDS SUMMARY | 2024-09-29 08:19 | XMS_ITS | Data Portability ---
Author Organization [facility] & [facility] Address [address] [place] [id number] Care Team Providers Care Medical Accounting Clerk Name Role Phone GIORGIO ANGUIANO Primary Care Provider Assessment Encounter Date Assessment Date Assessment LastModified by Organization Details LastModified Time 08/21/2022 08/21/2022 Pt is quite adamant about medication for weight loss but lacks insight on dietary changes and does not seem interested in discussion of or making changes to her diet. I will send in the contrave but am concerned it won't be covered as BMI is 28 without comorbids. I've asked her to request the labs she had recently before her colonoscopy and we can f/u and add additional appropriate work up such as lipid screening and thyroid function pending those results. [email or web address] Not available 08/21/2022 15:55:43 Plan of Treatment Reminders Order Date Submit Date Provider Last Modified By Organization Details Last Modified Time Details Appointments None recorded. Lab HbA1c (hemoglobi n A1c), blood [address], [address] [place] [address] [address], [place], [address], 16:09:19 Referral None recorded. Procedures None recorded. Surgeries None recorded. Imaging None recorded. Medication Orders Contrave 8 mg-90 mg tablet,ext ended release 2022 023 [facility], [facility]0 Fl [facility] [address], [place], [place], [id number], 3 16:31:40 Patient TargetsNo targets recorded. Patient InstructionsNo instructions recorded. Reason for Referral None Reported. Results Created Date Observation Date Name Description Value Unit Range Abnormal Flag Note LastModifiedBy Organization Detail LastModifiedTime 08/22/19 23 08/21/2022 HbA1c (hemo globi n A1c), blood HbA1c 5.2 Not Available Formerly [facility] [address], [place], [address], 08/21/2022 15:54:02 Result Notes None recorded. Procedures Surgical History Date Name Laterality Status Provider Name and Address Organization Details Recorded Time 2 Most [facility] [place] 08/11/2022 18:44:31 0 Date of Last Pap Sm[facility] [place] 08/11/2022 18:44:25 8 [facility] [place] 08/11/2022 18:40:28 [facility] [place] 08/11/2022 18:40:53 Imaging Results None recorded. Procedure Notes None recorded. Medical Equipment None Reported. Allergies No known drug allergies Medications Name Sig Start Date Stop Date Status Note LastModified by Organization Details LastModified Time amoxicillin 500 mg capsule TAKE ONE CAPSULE BY MOUTH THREE TIMES DAILY FOR 10 DAYS -- FINISH ALL MEDICINE -- active Not Available Not Available No t Available fluconazole 100 mg tablet TAKE ONE TABLET BY MOUTH EVERY DAY FOR 5 DAYS -- FINISH ALL MEDICINE -- 08/21 completed Not Available Not Available Not Available ketoconazol e 2 % shampoo massage into SCALP 2 TO 3 times a WEEK. Let sit FOR 5 minutes BEFORE rinsing. Follow with regular shampoo 08/21 completed Not Available Not Available Not Available azithromyci n 250 mg tablet TAKE 2 TABLETS BY MOUTH ON DAY 1, THEN TAKE 1 TABLET DAILY ON DAYS 2-5 08/21 completed Not Available Not Available Not Available fluconazole 150 mg tablet TAKE ONE TABLET BY MOUTH ONCE. MAY REPEAT DOSE in 72 hours. 08/21 completed Not Available Not Available Not Available hydrocodone 5 mg-acetamin ophen 325 mg tablet TAKE ONE TABLET BY MOUTH EVERY 6 HOURS NEEDED FOR PAIN MAY CAUSE DROWSINES S 08/21 completed Not Available Not Available Not Available prednisone 20 mg tablet TAKE ONE TABLET BY MOUTH TWICE DAILY -- FINISH ALL MEDICINE -- --TAKE WITH FOOD-- 08/21 completed Not Available Not Available Not Available metronidazo le 500 mg tablet TAKE ONE TABLET BY MOUTH TWICE DAILY FOR 7 DAYS -- FINISH ALL MEDICINE -- 08/21 completed Not Available Not Available Not Available phentermine 37.5 mg tablet Take one tablet by mouth daily (30 minutes before or 1-2 hour(s) after breakfast ). 08/21 completed Not Available Not Available Not Available ketorolac 10 mg tablet TAKE ONE TABLET BY MOUTH FOUR TIMES DAILY --TAKE WITH FOOD-- 08/21 completed Not Available Not Available Not Available fluticasone propionate 0.005 % topical ointment APPLY TO AFFECTED AREA ON EYEBROW TWICE DAILY FOR 1 WEEK. STOP FOR ONE WEEK. REPEAT NEEDED FOR FLARES 08/21 completed Not Available Not Available Not Available cephalexin 500 mg capsule TAKE ONE CAPSULE BY MOUTH TWICE DAILY FOR 10 DAYS -- FINISH ALL MEDICINE -- 08/21 completed Not Available Not Available Not Available methylpredn isolone 4 mg tablets in a dose pack TAKE ACCORDING TO PACKAGE INSTRUCTI ONS --TAKE WITH FOOD-- -- FINISH ALL MEDICINE -- 08/21 completed Not Available Not Available Not Available clobetasol 0.05 % scalp solution massage into SCALP ONCE DAILY AT night FOR 3 WEEKS, STOP FOR 1 WEEK. REPEAT NEEDED FOR flares 08/21 completed Not Available Not Available Not Available cefdinir 300 mg capsule TAKE ONE CAPSULE BY MOUTH TWICE DAILY FOR 10 DAYS -- FINISH ALL MEDICINE -- 08/21 completed Not Available Not Available Not Available hydroxyzine pamoate 25 mg capsule TAKE ONE CAPSULE BY MOUTH THREE TIMES DAILY NEEDED FOR ITCHING MAY CAUSE DROWSINES S 08/21 completed Not Available Not Available Not Available sodium,pota ssium,mag sulfates 17.5 gram-3.13 gram-1.6 gram oral soln take BY MOUTH DIRECTED PER your physcian' s instructi ons 04/06 /2023 completed Not Available Not Available Not Available Contrave 8 mg-90 mg tablet,exte nded release 1 tab qam x1 week, 1 tab BID x1 week, 2 tab qam and 1 tab qpm x 1 week, then 2 tab BID 1 week 2022 active Not Available Not Available Not Avai lable Vitals Date Recorded Body weight Body mass index (BMI) Body height Body temperature Oxygen saturation Oxygen saturation in Arterial blood by Pulse oximetry Heart rate Systolic blood pressure Diastolic blood pressure Provider Name and Address Organization Details Last Updated DateTime 3 50606.9 1 g 28.2 kg/m2 170.18 cm 97.4 [degF] 98 % 98 % 62 /min 140 mm[Hg] 82 mm[Hg] Brianda Marshall [facility] & [place] 15:23:35 Social History None recorded. Functional Status Question Answer Note LastModified by Organizat ion Details LastModified Time Do you use any illicit or recreational drugs? No [email or web address] Information not available 08/11/2022 Do you or have you ever used any other forms of tobacco or nicotine? No [email or web address] Information not available 08/11/2022 Mental Status None recorded. Family History Relationship Description Onset Age of this Age Resolved Age Notes LastModified by Organization Details LastModified Time Unspecified Relation Disorder of thyroid gland [email or web address] Not available 18:40:37 Mother Myocardial infarction [email or web address] Not available 18:41:08 Mother Diabetes mellitus [email or web address] Not available 08/21 15:12:35 Mother Cirrhosis of liver Non-al coholi c Not available 08/21/2022 15:12:35 Father Father [email or web address] Not available 08/21 15:12:35 Brother Malignant neoplasm of lung Deceas ed Not available 08/21/2022 15:12:35 Sister Diabetes mellitus [email or web address] Not available 08/21 15:12:35 Sister Hypertensive disorder [email or web address] Not available 18:43:12 Sister Hyperlipidem ia [email or web address] Not available 08/21 15:12:35 Sister Myocardial infarction [email or web address] Not available 18:43:36 Medical History No medical history recorded. Gynecological History Statement/Question Response Date of Last Pap Smear 05/18/2019 Most Recent Mammogram 06/18/2021 Obstetrics History GPAL:G 2 P 0 0 0 0 Past Encounters Encounter ID Performer Location Encounter Start Date Encounter Closed Date Diagnosis/Indication Diagnosis SNOMED-CT Code Diagnosis ICD10 Code Diagnosis Note [id number] Erika Felix MD [facility] [address] [facility] [address] [place] [address] 08/21/2022 15:12:14 08/21/2022 16:21:28 Overweight 222635147 E66.3 Diabetes m ellitus screening 853476851 Z13.1 Increased blood pressure 00481858 R03.0 Diet poor 699989074 Z72. 4 Health Concerns Section Related Observation LastModified by Organization Detai ls LastModified Time None Recorded Concern Status LastModified by Organization Details LastModified Time None Recorded Advance Directives Directive None Recorded Payers Insurance Date Sequence Insurance Name Policy Number Policy Montalvo Covered Member ID Montalvo Member ID Guarantor Name 08/18/2022 1 [place] [id number] Dali Bonilla [id number] Dali Bonilla 08/18/2022 2 [place] [id number] Dali Bonilla [id number] Dali Bonilla Notes Date Note Type Note Provider Name and Address Organization Details Recorded Time 08/21/2022 text/html SHe is here to discuss meds for weight loss. She was last seen here a year ago where she wanted medication for weight loss but had a normal BMI and was not open to discussion of nutritonal changes. She also did not follow up for labs.She would like to try contrave for weight loss.She had adipex written by her toe laster. She has been taking it intermittently for 3 years. She notes that she had weight gain during covid, approx 40 pounds.She has not done any type of tracking apps or particular dietary plans. She gets up at 345 AM, eats something around 9am, usually chips, candy bar. After 2pm she usually has something else. SHeSHe consumes 2 cans of soda per day. She drinks 3 bottles of water.SHe does not get regular exercise but is active with her job at [employer] She denies smoking. She has family hx of HTN. She has hx of DM in her mother. She has family hx of DM in siblings as well. Erika Felix MD [address], [place], [address], [facility] [facility] [place] & [place] 08/21/2022 16:27:16 OBGyn Episode No OBEpisode recorded.
--- NOTE | 2024-09-29 08:30 | MM_ITS ---
PROCEDURE INFORMATION: Exam: MG Bilateral Screening 3D Mammography Exam date and time: 09/29/2024 8:23 AM Age: 54 years old Clinical indication: Screening examination. TECHNIQUE: Imaging protocol: Bilateral Screening tomosynthesis and 2D mammography including computer-aided detection (CAD) when performed. COMPARISON: 1. MG MM DIG SCREENING MAMM BI W/CAD 09/17/2023 7:47 AM 2. MG MM DIG SCREENING MAMM BI W/CAD 09/09/2022 3:56 PM FINDINGS: MAMMOGRAPHY: Breast composition: The breasts are heterogeneously dense, which may obscure small masses. Mass: None. Architectural distortion: None. Calcifications: No suspicious calcifications. Asymmetric density: None. Skin thickening: None. Axillary adenopathy: None. IMPRESSION: No mammographic evidence of malignancy. Annual screening is recommended unless otherwise clinically indicated. ASSESSMENT: BI-RADS Category 1: Negative.
== END 2024-09-29 23:59 | disposition home or self-care (01) ==
LOC: RAD 08:17
PROVIDERS: PCP Nurse Practitioner Obstetrics & Gynecology; Visit Provider Nurse Practitioner Obstetrics & Gynecology
DX: Z12.31 Encounter for screening mammogram for malignant neoplasm of breast (principal)
CPT/HCPCS: 77063; 77067